=== PATIENT | male | born 1940 | race Caucasian/White ===

== ENCOUNTER 2016-10-05 16:29 | Emergency (ER) | payer BC ==
[2016-10-05 17:05] VITALS: BP 151/95
[2016-10-05] MEDS ORDERED: Ketorolac 30 MG/ML SDV IVPUSH ONE (17:22)
[2016-10-05] MEDS ORDERED: Sodium Chloride 0.9% 10 ML Syringe FLUSH PRN (17:22)
--- NOTE | 2016-10-05 19:26 | EDM.PDOC ---
ED HPI GENERAL MEDICAL PROBLEM - General Chief Complaint: Flank Pain Stated Complaint: POSSIBLE KIDNEY STONE Time Seen by Provider: 10/05/16 17:18 Source of Information: Reports: Patient History Limitations: Reports: No Limitations - History of Present Illness INITIAL COMMENTS - FREE TEXT/NARRATIVE: This patient complains of severe right flank pain that began this morning. He has vomited several times. He is voiding okay. He has not seen any blood in the urine. There is no history of kidney stones. He denies fever. 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 sometime is is this is all really bad burn) Respiratory/Chest: Lungs Clear Cardiovascular: Regular Rate, Rhythm GI/Abdominal: Soft, Non-Tender Back Exam: No: CVA Tenderness (R), CVA Tenderness (L) Extremities: Normal Inspection Course - Vital Signs Last Recorded V/S: Last Vital Signs Temp 36.1 C 10/05/16 17:05 Pulse 58 L 10/05/16 17:05 Resp 18 10/05/16 17:05 BP 151/95 H 10/05/16 17:05 Pulse Ox 94 L 10/05/16 17:05 - Orders/Labs/Meds Orders: Active Orders 24 hr Category Date Time Status Kidney Stone Protocol [CT] Stat Exams 10/05/16 17:23 Taken Sodium Chloride 0.9% [Saline Flush] Med 10/05/16 17:22 Active 10 ml FLUSH ASDIRECTED PRN Saline Lock Insert [OM.PC] Urgent Oth 07/06/17 17:22 Ordered Medication Orders Sodium Chloride (Saline Flush) 10 ml FLUSH ASDIRECTED PRN PRN Reason: Keep Vein Open Last Admin: 10/05/16 17:50 Dose: 10 ml Labs: Laboratory Tests 10/05/16 10/05/16 10/05/16 Range/Units 17:18 17:25 17:25 WBC 10.5 (4.5-11.0) K/uL RBC 5.35 (4.30-5.90) M/uL Hgb 16.3 H (12.0-15.0) g/dL Hct 48.1 (40.0-54.0) % MCV 90 (80-98) fL MCH 31 (27-31) pg MCHC 34 (32-36) % Plt Count 237 (150-400) K/uL Neut % (Auto) 85 H (36-66) % Lymph % (Auto) 8 L (24-44) % [place] % (Auto) 6 (2-6) % Eos % (Auto) 0 L (2-4) % Baso % (Auto) 1 (0-1) % Sodium 144 (140-148) mmol/L Potassium 3.8 (3.6-5.2) mmol/L Chloride 105 (100-108) mmol/L Carbon Dioxide 32 (21-32) mmol/L Anion Gap 7.4 (5.0-14.0) mmol/L BUN 26 H (7-18) mg/dL Creatinine 1.2 (0.8-1.3) mg/dL Est Cr Clr Drug Dosing 52.38 mL/min Estimated GFR (MDRD) 59 L (>60) Glucose 144 H (74-106) mg/dL Calcium 9.4 (8.5-10.1) mg/dL Urine Color Yellow Urine Appearance Clear Urine pH 6.5 (4.5-8.0) Ur Specific [place] 1.015 (1.008-1.030) Urine Protein Negative (NEGATIVE) mg/dL Urine Glucose (UA) Normal (NEGATIVE) mg/dL Urine Ketones Negative (NEGATIVE) mg/dL Urine Occult Blood Negative (NEGATIVE) Urine Nitrite Negative (NEGAITVE) Urine Bilirubin Negative (NEGATIVE) Urine Urobilinogen Normal (NORMAL) mg/dL Ur Leukocyte Esterase Negative (NEGATIVE) Urine RBC 0-5 (0-5) Urine WBC 0-5 (0-5) Ur Epithelial Cells Rare Amorphous Sediment Not seen Urine Bacteria Not seen Urine Mucus Not seen Urine Other Meds: Medications Generic Name Dose Route Start Last Admin Trade Name Freq PRN Reason Stop Dose Admin Sodium Chloride 10 ml 10/05/16 17:22 10/05/16 17:50 Saline Flush FLUSH 10 ml ASDIRECTED PRN Administration Keep Vein Open Discontinued Medications Generic Name Dose Route Start Last Admin Trade Name Freq PRN Reason Stop Dose Admin Ketorolac Tromethamine 30 mg 10/05/16 17:22 10/05/16 17:49 Toradol IVPUSH 10/05/16 17:23 30 mg ONETIME ONE Administration - Radiology Interpretation Free Text/Narrative:: CT KUB shows a 9 mm stone at the right ureterovesical junction. There is moderate hydronephrosis hydroureter with some associated stranding. There is a 5 mm stone in the right middle lobe of the lung. - Re-Assessments/Exams Free Text/Narrative Re-Assessment/Exam: 10/05/16 19:24 IV was established he was given Toradol 30 mg IV which gave complete relief of his pain and a short while. Departure - Departure Time of Disposition: 19:26 Disposition: Home, Self-Care 01 Condition: Fair Clinical Impression: Ureterolithiasis, Pulmonary nodule - Discharge Information Forms: ED Department Discharge Additional Instructions: For pain take Percocet 5/325 one or 2 tablets every 4 hours. This pain medication can cause sedation and impair driving. You may also take ibuprofen which is similar to the medication he received IV. The Flomax medication 0.4 mg daily can help you pass the stone. Be sure to drink lots of liquids. If you have nausea you may use the ondansetron 8 mg one half or one tablet every 6 hours. It should be obvious whenever you pass the stone. If you've not past it in a few days she need to follow-up with your doctor. If at any time you begin develop fever then you should be seen right away. Talk to your doctor about the small pulmonary nodule and whether or not it needs to be rechecked. - My Orders Last 24 Hours: My Active Orders 10/05/16 17:22 Sodium Chloride 0.9% [Saline Flush] 10 ml FLUSH ASDIRECTED PRN Saline Lock Insert [OM.PC] Urgent 10/05/16 17:23 Kidney Stone Protocol [CT] Stat - Assessment/Plan Last 24 Hours: My Active Orders 10/05/16 17:22 Sodium Chloride 0.9% [Saline Flush] 10 ml FLUSH ASDIRECTED PRN Saline Lock Insert [OM.PC] Urgent 10/05/16 17:23 Kidney Stone Protocol [CT] Stat
[2016-10-05] MEDS ORDERED: Tamsulosin 0.4 MG Cap.ER PO ONE (19:49)
== END 2016-10-05 20:05 | disposition home or self-care (01) ==
LOC: JP.ED 16:29
DX: N13.2 Hydronephrosis with renal and ureteral calculous obstruction (principal); R91.1 Solitary pulmonary nodule; E78.00 Pure hypercholesterolemia, unspecified; Z98.890 Other specified postprocedural states
CPT/HCPCS: 36415; 74176; 80048; 81001; 85025; 96374; 99284; A9270; J1885; J7050